=== PATIENT | female | born 2000 | race Caucasian/White ===

== ENCOUNTER 2024-08-10 21:27 | Outpatient (NON) | payer SELFPAY ==
[2024-08-11 01:36] LABS: Hepatitis B Surface Antibody > 1000.00 s/c
[2024-08-11 05:46] LABS: Hepatitis B Surface Anti Res Positive
== END 2024-08-10 21:28 | disposition home or self-care (01) ==
LOC: ANHEH 21:49
DX: Z00.00 Encounter for general adult medical examination without abnormal findings (principal)
CPT/HCPCS: 36415; 86706